=== PATIENT | male | born 1950 | race Caucasian/White ===

== ENCOUNTER 2019-07-09 14:18 | Observation (INO) | payer MEDICARE, OTHER ==
[2019-07-09 15:24] LABS: ABS Basophils 0.1 10^3/ul (0-0.2); ABS Eosinophils 0.2 10^3/ul (0-0.6); ABS Lymphocytes 1.4 10^3/ul (1.0-4.8); ABS Monocytes 0.5 10^3/ul (0-0.8); ABS Neutrophils 4.1 10^3/ul (1.5-7.7); Eosinophil % 2.8 %; Hematocrit 46 % (42-52); Hemoglobin 15.6 g/dL (14.0-18.0); Lymphocyte % 23.2 %; Mean Corpuscular HGB Conc 34 g/dL (31-36); Mean Corpuscular Hemoglobin 30 pg (27-31); Mean Corpuscular Volume 88 fL (80-94); Mean Platelet Volume 7.6 fL (7.4-10.4); Nucleated Red Blood Cells % 0.1; Platelet Count 274 10^3/uL (150-450); Red Blood Count 5.19 10^6 /uL (4.18-5.48); Red Cell Distribution Width 14 % (10-15); White Blood Count 6.2 10^3/uL (3.5-10.8)
[2019-07-09 15:31] LABS: INR 1.01 (0.82-1.09)
[2019-07-09 15:35] LABS: ALT 19 U/L (7-52); AST 19 U/L (13-39); Albumin 4.5 g/dL (3.2-5.2); Albumin/Globulin Ratio 1.7 (1-3); Alkaline Phosphatase 58 U/L (34-104); Anion Gap 7 mmol/L (2-11); BUN/Creatinine Ratio 15.3 (8-20); Blood Urea Nitrogen 17 mg/dL (6-24); CO2 Carbon Dioxide 28 mmol/L (22-32); Calcium 9.2 mg/dL (8.6-10.3); Chloride 101 mmol/L (101-111); EGFR African American 79.5 (>60); EGFR Non-African American 65.7 (>60); Globulin 2.6 g/dL (2-4); Glucose 118 mg/dL (70-100); Sodium 136 mmol/L (135-145); Total Protein 7.1 g/dL (6.4-8.9)
[2019-07-09 15:41] LABS: Troponin I 0.04 ng/mL (<0.03)
--- NOTE | 2019-07-09 16:41 | ED ---
HPI Chest Pain - HPI Summary HPI Summary: This pt is a 69 Y/O M presenting to [facility] with a CC of CP that has been present since 07/07/19 that was located mid sternal. He states that the onset happened while he was dancing and was rated a 2/10 in severity. He states that the pain went away after he took a rest. He states that he had a similar episode on 2019 while watching a football game at a bar. He states that he had a third episode today while he was walking on some trails. The final episode was resolved after her took a rest after returning home. He states that while walking into the hospital he experienced the same chest discomfort, which has resolved since he has been lying in his bed. He states that the pain is described as discomfort. He states that he has been under stress due to a move recently. He denies any fevers, chills, N/V/D, SOB, and headaches. He states that he has a PMHx of hypercholesterolemia. - History of Current Complaint Chief Complaint: EDChestPainROMI Time Seen by Provider: 07/09/19 16:28 Hx Obtained From: Patient Onset/Duration: Started Days Ago - 2, Still Present Timing: Intermittent Initial Severity: Mild Current Severity: Mild Pain Intensity: 2 Pain Scale Used: 0-10 Numeric Chest Pain Location: Mid Sternal Chest Pain Radiates: No Character: Other: - discomfort Aggravating Factor(s): Exertion Alleviating Factor(s): Rest Associated Signs and Symptoms: Positive: Negative - diarrhea, Chest Pain. Negative: Headaches, Shortness of Breath, Fever, Chills, Nausea, Vomiting - Additional Pertinent History Primary Care Physician: CEZAR - Allergy/Home Medications Allergies/Adverse Reactions: Allergies Allergy/AdvReac Type Severity Reaction Status Date / Time No Known Allergies Allergy Verified 02/16/16 10:27 Home Medications: Home Medications Bacillus Coagulans/Inulin [Probiotic Formula 1-250 Billion-mg] 1 cap PO DAILY [History Confirmed 07/09/19] PMH/Surg Hx/FS Hx/Imm Hx Previously Healthy: Yes Endocrine/Hematology History: Reports: Other Endocrine/Hematological Disorders - GOUT, LYME DISEASE HX Cardiovascular History: Reports: Hx Hypercholesterolemia Denies: Hx Pacemaker/ICD Respiratory History: Reports: Hx Asthma GI History: Reports: Hx Gastrointestinal Bleed, Other GI Disorders - DIVERTICULITIS Musculoskeletal History: Reports: Hx Arthritis Sensory History: Reports: Hx Hearing Aid - BOTH EARS-NOT WITH PT Psychiatric History: Denies: Hx Panic Disorder - Cancer History Hx Chemotherapy: No Hx Radiation Therapy: No - Surgical History Surgical History: Yes - Immunization History Immunizations Up to Date: Yes Infectious Disease History: No Infectious Disease History: Denies: Traveled Outside the [place] in Last 30 Days - Family History Known Family History: Positive: None - Social History Occupation: Retired Lives: Alone Alcohol Use: None Hx Substance Use: No Substance Use Type: Reports: None Hx Tobacco Use: Yes Smoking Status (MU): Former Smoker Type: Cigarettes Have You Smoked in the Last Year: No Review of Systems Negative: Fever, Chills Positive: Chest Pain Negative: Shortness Of Breath Negative: Vomiting, Diarrhea, Nausea Negative: Headache All Other Systems Reviewed And Are Negative: Yes Physical Exam - Summary Physical Exam Summary: Appearance: The patient is well-nourished in no acute distress and in no acute pain. Skin: The skin is warm and dry and skin color reflects adequate perfusion. HEENT: The head is normocephalic and atraumatic. The pupils are equal and reactive. The conjunctivae are clear and without drainage. Nares are patent and without drainage. Mouth reveals moist mucous membranes and the throat is without erythema and exudate. The external ears are intact. The ear canals are patent and without drainage. The tympanic membranes are intact. Neck: The neck is supple with full range of motion and non-tender. There are no carotid bruits. There is no neck vein distension. Respiratory: Chest is non-tender. Lungs are clear to auscultation and breath sounds are symmetrical and equal. Cardiovascular: Heart is regular rate and rhythm. There is no murmur or rub auscultated. There is no peripheral edema and pulses are symmetrical and equal. Abdomen: The abdomen is soft and non-tender. There are normal bowel sounds heard in all four quadrants and there is no organomegaly palpated. Musculoskeletal: There is no back tenderness noted. Extremities are non-tender with full range of motion. There is good capillary refill. There is no peripheral edema or calf tenderness elicited. Neurological: Patient is alert and oriented to person, place and time. The patient has symmetrical motor strength in all four extremities. Cranial nerves are grossly intact. Deep tendon reflexes are symmetrical and equal in all four extremities. Psychiatric: The patient has an appropriate affect and does not exhibit any anxiety or depression. Triage Information Reviewed: Yes Vital Signs On Initial Exam: Initial Vitals Temp Pulse Resp BP Pulse Ox 98.2 F 90 18 170/84 99 07/09/19 14:23 07/09/19 14:23 07/09/19 14:23 07/09/19 14:23 07/09/19 14:23 Vital Signs Reviewed: Yes Procedures - Sedation Patient Received Moderate/Deep Sedation with Procedure: No Diagnostics - Vital Signs Vital Signs Temp Pulse Resp BP Pulse Ox 07/09/19 14:23 98.2 F 90 18 170/84 99 - Laboratory Lab Results: Lab Results 07/08/19 07/08/19 07/09/19 Range/Units 14:54 14:54 14:54 WBC 6.2 (3.5-10.8) 10^3/uL RBC 5.19 (4.18-5.48) 10^6 /uL Hgb 15.6 (14.0-18.0) g/dL Hct 46 (42-52) % MCV 88 (80-94) fL MCH 30 (27-31) pg MCHC 34 (31-36) g/dL RDW 14 (10-15) % Plt Count 274 (150-450) 10^3/uL MPV 7.6 (7.4-10.4) fL Neut % (Auto) 65.4 % Lymph % (Auto) 23.2 % [place] % (Auto) 7.5 % Eos % (Auto) 2.8 % Baso % (Auto) 1.1 % Absolute Neuts (auto) 4.1 (1.5-7.7) 10^3/ul Absolute Lymphs (auto) 1.4 (1.0-4.8) 10^3/ul Absolute Monos (auto) 0.5 (0-0.8) 10^3/ul Absolute Eos (auto) 0.2 (0-0.6) 10^3/ul Absolute Basos (auto) 0.1 (0-0.2) 10^3/ul Absolute Nucleated RBC 0.0 10^3/ul Nucleated RBC % 0.1 INR (Anticoag Therapy) 1.01 (0.82-1.09) Sodium 136 (135-145) mmol/L Potassium 4.0 (3.5-5.0) mmol/L Chloride 101 (101-111) mmol/L Carbon Dioxide 28 (22-32) mmol/L Anion Gap 7 (2-11) mmol/L BUN 17 (6-24) mg/dL Creatinine 1.11 (0.67-1.17) mg/dL Est GFR ( Amer) 79.5 (>60) Est GFR (Non-Af Amer) 65.7 (>60) BUN/Creatinine Ratio 15.3 (8-20) Glucose 118 H (70-100) mg/dL Calcium 9.2 (8.6-10.3) mg/dL Total Bilirubin 0.40 (0.2-1.0) mg/dL AST 19 (13-39) U/L ALT 19 (7-52) U/L Alkaline Phosphatase 58 (34-104) U/L Troponin I 0.04 H* (<0.03) ng/mL Total Protein 7.1 (6.4-8.9) g/dL Albumin 4.5 (3.2-5.2) g/dL Globulin 2.6 (2-4) g/dL Albumin/Globulin Ratio 1.7 (1-3) Result Diagrams: 07/08/19 14:54 07/08/19 14:54 Lab Statement: Any lab studies that have been ordered have been reviewed, and results considered in the medical decision making process. - EKG 1421 Cardiac Rate: NL - 70 BPM EKG Rhythm: Sinus Rhythm Summary of EKG Findings: Normal sinus rhythm at 90 BPM with left atrial enlargement and borderline ST depressions, no STEMI. Interpreted by Dr. Hughes, 1422 07/09/2019. Chest Pain Course/Dx - Course Course Of Treatment: Mr. Alfonso presented with a good story for unstable angina. He was nontoxic in appearance with stable vitals. His initial EKG showed some nondiagnostic diffuse ST depressions. Initial troponin was 0.04. I spoke with Dr. Mak recommended admission to the hospital service and I spoke with Dr. Gray who came and evaluated the patient. The patient was pain- free here and I gave him an aspirin which he does not take routinely. - Diagnoses Provider Diagnoses: Unstable angina - Provider Notifications Discussed Care Of Patient With: Rashida Gray Time Discussed With Above Provider: 17:32 Instructed by Provider To: Admit As Inpatient Admit/Transition Orders Completed By ED Provider: Yes Discharge ED - Sign-Out/Discharge Documenting (check all that apply): Patient Departure - admitted - Discharge Plan Condition: Stable Disposition: ADMITTED TO [facility] - Billing Disposition and Condition Condition: STABLE Disposition: Admitted to [facility] - Attestation Statements Document Initiated by Cornelioibe: Yes Documenting Scribe: Arthur Elena Provider For Whom Jakob is Documenting (Include Credential): Jimy Hughes MD Scribe Attestation: Arthur Villanueva, scribed for Jimy Hughes MD on 07/09/19 at 2128. Scribe Documentation Reviewed: Yes Provider Attestation: The documentation as recorded by the Arthur barros accurately reflects the service I personally performed and the decisions made by Jimy diana MD Status of Scribe Document: Viewed
[2019-07-09] MEDS ORDERED: Aspirin TAB* 325 MG PO ONE (17:00)
[2019-07-09 18:06] LABS: Troponin I 0.13 ng/mL (<0.03)
[2019-07-09] MEDS ORDERED: Acetaminophen TAB* 325 MG PO PRN (18:06)
[2019-07-09 18:28] LABS: Cholesterol 182 mg/dL; HDL Cholesterol 41.2 mg/dL; LDL Cholesterol 86 mg/dL; Triglycerides 274 mg/dL
[2019-07-09] MEDS ORDERED: Enoxaparin(*) 80 MG/0.8 ML SYR SUBCUT SCH (19:30)
--- NOTE | 2019-07-09 20:09 | HP ---
CC: Dr. Deo Godniez * HISTORY AND PHYSICAL: DATE OF ADMISSION: 07/09/19 PRIMARY CARE PROVIDER: Dr. Deo Godinez. HEALTHCARE PROXY: The patient's brother, Juan C, phone number [phone]. CODE STATUS: Full. CHIEF COMPLAINT: Subacute progressive intermittent chest pain. HISTORY OF PRESENT ILLNESS: Mr. Finley is a 69-year-old man without significant prior medical diagnoses, who is presenting with worsening intermittent substernal chest pain. The patient reports that he has had a substernal pressure-like chest pain on significant exertion "rarely" over the last 2 years; however, over the last 2 days, it has acutely worsened. He reports 2 nights ago dancing on [employer] when the chest pain came on suddenly. It lasted several minutes, so the patient rested as this had helped with his chest pain in the past. He then went home as he was afraid the chest pain would come back if he continues to exert himself. The next day, which was yesterday, the patient was sitting at a sports bar watching a game when the chest pain came on all of a sudden and was again substernal, nonradiating, although this time it felt more stabbing in quality and after several minutes, it went away. Today, on the day of presentation, the patient walked approximately one-tenth of a mile when the chest pain came on suddenly, was severe, associated with hand tingling and the patient decided to come to the emergency room as normally he has unlimited exercise tolerance. He denies associated diaphoresis, fevers, chills, shortness of breath, abdominal pain, nausea, vomiting, constipation, or dysuria. PAST MEDICAL HISTORY: 1. Right-sided inguinal hernia, pending repair. 2. A 4-pack-year smoking history. HOME MEDICATIONS: Probiotic. ALLERGIES: No known drug allergies. FAMILY HISTORY: He reports multiple family members with high cholesterol. SOCIAL HISTORY: The patient lives alone at home with 2 cats. 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 He quit smoking at the age of 50, smoked for approximately 25 years, 1 pack per week. He has an occasional glass of wine or lilia. He does not use other drugs. REVIEW OF SYSTEMS: A complete 10-point review of systems was performed and pertinent positives and negatives are listed in the HPI. PHYSICAL EXAMINATION GENERAL: He is a well-appearing man, in no acute distress, who is alert and interactive, speaking in full sentences, very pleasant. VITAL SIGNS: Afebrile, heart rate 76, blood pressure 164/99, respiratory rate 16, oxygen saturation 96% on room air. NECK: No JVD. LUNGS: Clear to auscultation bilaterally. HEART: Regular rate and rhythm. No murmurs, gallops, or rubs. ABDOMEN: Soft, nontender, nondistended. NEURO: No focal deficits. A and O x3. SKIN: Warm and dry. DIAGNOSTIC STUDIES/LAB DATA: CBC, BMP, LFTs within normal limits. Troponin 0.04. Chest x-ray not performed. EKG: Normal sinus rhythm, rate 90, submillimeter ST depressions in II, III, and aVF. ASSESSMENT AND PLAN: Mr. Finley is a 69-year-old previously healthy man who is presenting with subacute progressive intermittent chest pain associated with exertion, found to have positive troponin and slight ST depressions on EKG. 1. Chest pain. The progressive nature of the patient's symptoms in the context of positive troponin and EKG changes although mild are concerning for acute coronary syndrome. The patient denies history of hypertension, although he was hypertensive on presentation. He has a history of not tolerating a statin, multiple family members with hyperlipidemia, and he also has a smoking history. Given these risk factors, Cardiology was consulted and recommended a nuclear stress test for tomorrow morning. In the meantime, the patient will be initiated on aspirin, beta claudia, and therapeutic anticoagulation with Lovenox. Statin is held as the patient reports significant muscular pain in the past with statins. He will remain on telemetry and he has also been ordered for an echocardiogram. Lipids and A1c are pending. 2. DVT prophylaxis: The patient is on therapeutic anticoagulation. 3. Code status: Full code. TIME SPENT: Approximately 60 minutes was spent on admission of this patient, more than half of which was spent at the bedside for interview and exam. [id number]/CPS #: [id number] FADIA
[2019-07-09] MEDS: Metoprolol Tartrate TAB* 25 MG PO SCH (20:16)
[2019-07-09 22:02] LABS: Troponin I 0.15 ng/mL (<0.03)
[2019-07-09] MEDS ORDERED: Heparin DRIP 25,000 UNITS(*) 25,000 UNITS/500 ML BAG IV SCH (23:00)
[2019-07-09] MEDS ORDERED: Heparin VIAL(*) 5000 UNITS/ML VIAL (FIVE THOUSAND) IV SCH (23:00)
--- NOTE | 2019-07-09 23:09 | PN ---
Resident Interval ProgressNote Date of Service: 07/09/19 Called to see patient for uptrending Trop 69 y/o male came in for progressively worsening angina. Patient was sleeping, no chest pain, palpitation since admission. last one happens when dancing the other day. Repeat EKG: worsening ST depression inferior lead, submilimeter ST elevation V2- V3. CT interval 227 A+ P NSTEMI - with uptrending trop and worsening st depression inferior lead and new pr prolongation (227), likely NSTEMI - has been given aspirin loading, will give plavix loading - start iv heparin drip - will hold off statin as patient had intolerance of statin in the past - will continue to trend trop and repeat ekg same time. - need cardio opinion regarding cath in view of nstemi Above plan discussed with patient, no bleeding diathesis, agrees with current plan.
[2019-07-09] MEDS ORDERED: Clopidogrel TAB* 300 MG PO ONE (23:20)
[2019-07-10 00:06] LABS: ABS Basophils 0.1 10^3/ul (0-0.2); ABS Eosinophils 0.2 10^3/ul (0-0.6); ABS Lymphocytes 2.1 10^3/ul (1.0-4.8); ABS Monocytes 0.7 10^3/ul (0-0.8); ABS Neutrophils 3.1 10^3/ul (1.5-7.7); Eosinophil % 3.9 %; Hematocrit 43 % (42-52); Hemoglobin 15.1 g/dL (14.0-18.0); Lymphocyte % 33.5 %; Mean Corpuscular HGB Conc 35 g/dL (31-36); Mean Corpuscular Hemoglobin 31 pg (27-31); Mean Corpuscular Volume 89 fL (80-94); Mean Platelet Volume 7.1 fL (7.4-10.4); Platelet Count 242 10^3/uL (150-450); Red Blood Count 4.89 10^6 /uL (4.18-5.48); Red Cell Distribution Width 14 % (10-15); White Blood Count 6.2 10^3/uL (3.5-10.8)
[2019-07-10 00:23] LABS: EGFR African American 97.5 (>60); EGFR Non-African American 80.6 (>60)
[2019-07-10 02:59] LABS: Troponin I 0.14 ng/mL (<0.03)
[2019-07-10 05:37] LABS: ABS Basophils 0.1 10^3/ul (0-0.2); ABS Eosinophils 0.3 10^3/ul (0-0.6); ABS Lymphocytes 1.9 10^3/ul (1.0-4.8); ABS Monocytes 0.5 10^3/ul (0-0.8); ABS Neutrophils 2.2 10^3/ul (1.5-7.7); Eosinophil % 5.5 %; Hematocrit 44 % (42-52); Hemoglobin 15.2 g/dL (14.0-18.0); Lymphocyte % 38.6 %; Mean Corpuscular HGB Conc 35 g/dL (31-36); Mean Corpuscular Hemoglobin 31 pg (27-31); Mean Corpuscular Volume 88 fL (80-94); Mean Platelet Volume 7.3 fL (7.4-10.4); Platelet Count 235 10^3/uL (150-450); Red Blood Count 4.96 10^6 /uL (4.18-5.48); Red Cell Distribution Width 14 % (10-15)
[2019-07-10] MEDS ORDERED: Ticagrelor* 90 MG TAB PO ONE (08:20)
--- NOTE | 2019-07-10 08:28 | PN ---
Subjective Date of Service: 07/10/19 Interval History: Troponin increased overnight, but patient without chest pain. Cardiology aware and considering patient for cath. Objective Active Medications: Acetaminophen (Tylenol Tab*) 975 mg PO Q8H PRN PRN Reason: Pain - Mild to Moderate Aspirin (Aspirin 81 Mg Chew Tab*) 81 mg PO DAILY ON LICENSE OF [facility] Heparin Sodium (Porcine) (Heparin Vial(*)) 0 units IV .PER PROTOCOL ON LICENSE OF [facility] Heparin Sodium/Dextrose (Heparin Drip 25,000 Units(*)) 25,000 units in 500 mls @ 0 mls/hr IV PER RATE ON LICENSE OF [facility]; Protocol Last Admin: 07/10/19 00:11 Dose: 20 mls/hr Metoprolol Tartrate (Lopressor Tab*) 12.5 mg PO Q12HR JOANNE Last Admin: 07/09/19 20:16 Dose: 12.5 mg Ticagrelor (Brilinta*) 180 mg PO ONCE ONE Stop: 07/10/19 08:21 Vital Signs - 8 hr 07/10/19 03:14 Temperature 97.8 F Pulse Rate 70 Respiratory 18 Rate Blood Pressure 141/74 (mmHg) O2 Sat by Pulse 98 Oximetry Oxygen Devices in Use Now: None Appearance: well appearing man in NAD, speaking in full sentences, very pleasant Ears/Nose/Mouth/Throat: Clear Oropharnyx, Mucous Membranes Moist Neck: - - carotid bruits b/l Respiratory: Symmetrical Chest Expansion and Respiratory Effort, Clear to Auscultation Cardiovascular: NL Sounds; No Murmurs; No JVD, RRR Abdominal: NL Sounds; No Tenderness; No Distention, No Hepatosplenomegaly Extremities: No Edema Skin: No Rash or Ulcers Neurological: Alert and Oriented x 3 Result Diagrams: 07/10/19 05:23 07/10/19 00:01 Additional Lab and Data: Lab Results 07/08/19 07/08/19 07/09/19 Range/Units 14:54 14:54 14:54 WBC 6.2 (3.5-10.8) 10^3/uL RBC 5.19 (4.18-5.48) 10^6 /uL Hgb 15.6 (14.0-18.0) g/dL Hct 46 (42-52) % MCV 88 (80-94) fL MCH 30 (27-31) pg MCHC 34 (31-36) g/dL RDW 14 (10-15) % Plt Count 274 (150-450) 10^3/uL MPV 7.6 (7.4-10.4) fL Neut % (Auto) 65.4 % Lymph % (Auto) 23.2 % [place] % (Auto) 7.5 % Eos % (Auto) 2.8 % Baso % (Auto) 1.1 % Absolute Neuts (auto) 4.1 (1.5-7.7) 10^3/ul Absolute Lymphs (auto) 1.4 (1.0-4.8) 10^3/ul Absolute Monos (auto) 0.5 (0-0.8) 10^3/ul Absolute Eos (auto) 0.2 (0-0.6) 10^3/ul Absolute Basos (auto) 0.1 (0-0.2) 10^3/ul Absolute Nucleated RBC 0.0 10^3/ul Nucleated RBC % 0.1 INR (Anticoag Therapy) 1.01 (0.82-1.09) Sodium 136 (135-145) mmol/L Potassium 4.0 (3.5-5.0) mmol/L Chloride 101 (101-111) mmol/L Carbon Dioxide 28 (22-32) mmol/L Anion Gap 7 (2-11) mmol/L BUN 17 (6-24) mg/dL Creatinine 1.11 (0.67-1.17) mg/dL Est GFR ( Amer) 79.5 (>60) Est GFR (Non-Af Amer) 65.7 (>60) BUN/Creatinine Ratio 15.3 (8-20) Glucose 118 H (70-100) mg/dL Calcium 9.2 (8.6-10.3) mg/dL Total Bilirubin 0.40 (0.2-1.0) mg/dL AST 19 (13-39) U/L ALT 19 (7-52) U/L Alkaline Phosphatase 58 (34-104) U/L Troponin I 0.04 H* (<0.03) ng/mL Total Protein 7.1 (6.4-8.9) g/dL Albumin 4.5 (3.2-5.2) g/dL Globulin 2.6 (2-4) g/dL Albumin/Globulin Ratio 1.7 (1-3) Assess/Plan/Problems-Billing Assessment: Mr. Finley is a 69-year-old previously healthy man who is presenting with subacute progressive intermittent chest pain with exertion, and now at rest, found to have positive troponin and slight ST depressions on EKG, concerning for NSTEMI. - Patient Problems (1) NSTEMI (non-ST elevated myocardial infarction) Comment: By symptoms, elevated trop, and EKG changes. - pending cardiac cath today - on aspirin, statin, heparin - appreciate cardiology consult (2) HTN (hypertension) Comment: - started beta-claudia for cardiac disease - monitor BP as he will likely need a first-line agent
[2019-07-10 08:54] LABS: Creatine Kinase 50 U/L (10-223)
[2019-07-10 08:59] LABS: CKMB ng/mL 2.2 ng/mL (0.6-6.3)
[2019-07-10 08:59] LABS: CKMB ng/mL 2.8 ng/mL (0.6-6.3)
[2019-07-10 08:59] LABS: CKMB ng/mL 2.8 ng/mL (0.6-6.3)
[2019-07-10] MEDS ORDERED: Clopidogrel TAB* 75 MG PO SCH (09:00)
[2019-07-10] MEDS ORDERED: Pantoprazole TAB * 40 MG TAB PO SCH (09:00)
[2019-07-10] MEDS ORDERED: Aspirin 81 mg CHEW TAB* 81 MG TAB.CHEW PO SCH (09:00)
[2019-07-10 09:02] LABS: CKMB ng/mL 1.8 ng/mL (0.6-6.3)
--- NOTE | 2019-07-10 09:02 | ECHO ---
*[facility]* [place] [address] Fax #: [phone] Transthoracic Echocardiogram Patient: Jimy Finley : 1950 Study Date: 07/10/2019 Age: 69 Gender: M HR: 60 bpm Height: 70 in /177.8 cm BSA: 1.96 m^2 Weight: 169.6 lb /77.1 kg BMI: 24.4 kg/m^2 *Hog Killer: * Maru Escobar [facility] *Referring Physician: * Rashida Gray *Reading Physician: * Sergio Phoenix MD Indications: Chest Pain, unspecified. History: Risk factors: Former tobacco use. Hyperlipidemia. Conclusions Summary: - Left ventricle: The cavity size is normal. Wall thickness is mildly increased. Systolic function is normal. The estimated ejection fraction is 55-60%. Wall motion is normal; there are no regional wall motion abnormalities. Doppler parameters are consistent with abnormal left ventricular relaxation (grade 1 diastolic dysfunction). - Normal cardiac chamber sizes. - Functionally benign heart valves. - There is no prior echocardiogram available to compare with at this time. Study data: Transthoracic echocardiogram. Procedure: Transthoracic echocardiography was performed. Image quality was fair. Complete 2D, spectral Doppler, and color flow Doppler. Location: Bedside. Patient status: Inpatient. Patient room number: 446-01. Rhythm: Normal sinus rhythm. Findings Left ventricle: The cavity size is normal. Wall thickness is mildly increased. Systolic function is normal. The estimated ejection fraction is 55-60%. Wall motion is normal; there are no regional wall motion abnormalities. Doppler parameters are consistent with abnormal left ventricular relaxation (grade 1 diastolic dysfunction). Right ventricle: The cavity size is at the upper limits of normal. Wall thickness is at the upper limits of normal. Systolic function is normal. Left atrium: The atrium is at the upper limits of normal in size. Right atrium: The atrium is normal in size. Mitral valve: The leaflets are mildly thickened. There is trace regurgitation. Aortic valve: The valve is trileaflet. The leaflets are mildly thickened. Thickening, consistent with sclerosis. There is no evidence of stenosis. There is no significant regurgitation. Tricuspid valve: The leaflets are normal thickness. There is no regurgitation. Pulmonic valve: The leaflets are normal thickness. There is no evidence of stenosis. Pulmonary valve velocity 0.84 m/sec. There is no regurgitation. Aorta: Aortic root: The aortic root is appears normal. Ascending aorta: The ascending aorta is appears normal. Aortic arch: The aortic arch is appears normal. Pericardium: There is no significant pericardial effusion. Pulmonary arteries: The main pulmonary artery is normal-sized. Systolic pressure can not be accurately estimated. Systemic veins: Inferior vena cava: The vessel is normal in size. There is (>= 50%) respiratory change in the IVC dimension. Measurements Left ventricle Value Ref Right atrium Value Ref FRANK, LAX 4.3 cm 4.2 - SI dim, ES 4.2 cm 3.4 - 5.3 5.8 ML dim, ES, A4C 4.0 cm 2.6 - 4.4 ESD, LAX 3.1 cm 2.5 - Estimated RAP 3 mm Hg --------- 4.0 FS, LAX 28 % Aortic valve Value Ref PW, ED, LAX (H) 1.1 cm 0.6 - Qamar diam, S (L) 1.9 cm 2.0 - 3.2 1.0 Peak v, S 1.28 m/sec --------- FS 28 % VTI, S 23.4 cm --------- PW, ED (H) 1.1 cm 0.6 - Mean grad, S 4.3 mm Hg --------- 1.0 Peak grad, S 6.6 mm Hg --------- E', lat qamar, TDI (L) 5.0 cm/sec >=10.0 LVOT/AV, VTI ratio 0.68 --- ------ E/e', lat qamar, TDI 9 -------- LOS, VTI 1.74 cm^2 ------ --- E', med qamar, TDI (L) 5.0 cm/sec >=7.0 LOS, Vmax 2.13 cm^2 --- ------ E/e', med qamar, TDI 9 -------- E', avg, TDI 5.0 cm/sec -------- Mitral valve Value Ref E/e', avg, TDI 9 <=14 Peak E 0.44 m/sec --- ------ Peak A 0.66 m/sec --------- LVOT Value Ref Decel time 201 ms --------- Diam, S 1.97 cm -------- Peak E/A ratio 0.66 --------- Area 3.1 cm^2 -------- Peak gauri, S 0.87 m/sec -------- Aortic root Value Ref VTI, S 15.9 cm -------- Root diam 3.1 cm <4.1 Peak grad, S 3 mm Hg -------- Mean grad, S 2 mm Hg -------- Ascending aorta Value Ref AAo AP diam, S 3.4 cm --------- Ventricular septum Value Ref IVS, ED (H) 1.2 cm 0.6 - Aortic arch Value Ref 1.0 Arch diam 2.3 cm --------- Right ventricle Value Ref Decending aorta Value Ref AW thickness, ED 0.5 cm 0.1 - Kamlesh peak gauri 0.52 m/sec --------- 0.5 FRANK, LAX 2.7 cm -------- Inferior vena cava Value Ref FRANK minor ax, A4C 3.5 cm 1.9 - Diam 1.6 cm --------- mid 3.5 Left atrium Value Ref LA ID 3.3 cm -------- SI dim ES, LAX 3.3 cm -------- ML dim, A4C 3.5 cm -------- SI dim, A4C 5.3 cm -------- Vol, ES, 2-p 67 ml -------- Vol/bsa, ES, 2-p 34 ml/m^2 16 - 34 Legend: (L) and (H) elijah values outside specified reference range. Prepared and electronically signed by Sergio Phoenix MD 07/10/2019 09:01
[2019-07-10] MEDS ORDERED: diPHENhydraMINE PO* 50 MG PO PRN (09:06)
[2019-07-10] MEDS ORDERED: Diazepam TAB(*) 5 MG PO PRN (09:06)
[2019-07-10] MEDS ORDERED: NS 0.9% 1000 ML** 1,000 ML IV SCH ×2 (09:15→12:30)
[2019-07-10 09:19] LABS: Creatine Kinase 49 U/L (10-223)
[2019-07-10 09:24] LABS: CKMB ng/mL 2.1 ng/mL (0.6-6.3)
[2019-07-10 09:25] LABS: Troponin I 0.11 ng/mL (<0.03)
[2019-07-10] MEDS: Metoprolol Tartrate TAB* 25 MG PO SCH (09:28)
[2019-07-10] MEDS ORDERED: Lidocaine 1% INJ* 10 MG/ML 30 ML SDV ONE (10:55)
[2019-07-10] MEDS ORDERED: Heparin 2 UNITS/ML IVPREMIX* 2,000 ML IV ONE (10:55)
[2019-07-10] MEDS ORDERED: Iohexol 350 (CONTRAST) 200 ML MDV IV ONE (10:55)
[2019-07-10] MEDS ORDERED: Heparin(*) 1000 UNIT/ML 10 ML VIAL CATH LAB IV ONE (11:04)
[2019-07-10] MEDS ORDERED: nitroGLYCERIN DRIP* 25,000 MCG/250 ML BTL ONE (11:04)
[2019-07-10] MEDS ORDERED: VERAPAMIL 2.5 MG/ML 2 ML VIAL ** 5 mg/2 ml ONE (11:04)
[2019-07-10] MEDS ORDERED: Midazolam* 1 MG/ML 5 ML VIAL (5 MG) ONE (11:04)
[2019-07-10] MEDS ORDERED: fentaNYL* 50 MCG/ML 2 ML VIAL (100 MCG VIAL) ONE (11:04)
--- NOTE | 2019-07-10 11:44 | CONS ---
CONSULTATION REPORT: DATE OF CONSULT: 07/10/19 ATTENDING PROVIDER: Dr. Edgar Reyes (Dictated by Catie Orr, [place]). PRIMARY PHYSICIAN: Dr. Godinez, PRIMARY PAPERBACK MACHINE OPERATOR: None. REASON FOR CONSULT: Cardiac enzyme elevation with EKG changes. CHIEF COMPLAINT: Escalating chest pain since 07/07/19. HISTORY OF PRESENT ILLNESS: This is a pleasant 69-year-old male patient with a previous documented medical history of hypertension, diverticular GI bleed in 2016, gallstone pancreatitis, remote tobacco abuse, gastric reflux, gluten sensitivity, and relapsing Lyme disease. The patient presented to [facility] on 07/09/19 due to progressive chest pain. Upon further enquiry, it appears that patient has had exertional substernal chest pain dating back to at least 2012, that would historically occur once a month, typically in the setting of dancing, which he does as a hobby. He states symptoms have been stable since that time and would almost always resolve with rest. He adds that on remington while dancing, he experienced an episode of chest pain that persisted for 15 minutes. No relieving factors, not related to inspiration, palpation or movement of torso occurred while dancing and again resolved after rest. He states that on day (07/08/19) while sitting at a bar, he developed a recurrent episode that was concerning to him because, again, he was not active while episode occurred, which is historically the provoking factor. Episode again resolved on its own, no relieving factors. He states yesterday, 07/09/19, while walking down a hill near [facility], he developed another episode of substernal chest pain radiating down bilateral upper extremities with associated paresthesia per patient. He states that episode was ongoing and persistent, thus he drove himself to [facility]. Pain had resolved en route to [facility], however, apparently from walking to his car into the emergency department, he developed another episode of chest pain that resolved with rest. The patient was seen in the emergency department, given a Plavix load, started on IV heparin, basic blood work obtained, revealed troponinemia with new inferolateral ST-segment depression compared to prior ECG in 2016. He was admitted to [address] [place] [address] for ACS and we have been asked to see patient in consultation. He is currently chest pain free, again, last episode was while walking into the emergency department, 07/09/19. He denies dizziness, syncope, palpitation, shortness of breath, dyspnea on exertion. Does report associated bilateral upper extremity paresthesia with episodes. In the past, he states that he has been told he had hyperlipidemia, but because of muscle aches and pains, he was hesitant to start statin therapy; however, he is agreeable to initiating statin therapy at this time. He adds that although he does not take medications at home, he would be compliant if medications were recommended and prescribed for his heart health. He is in the process of moving to [place] and recently accepted an offer on his home in [place], he was planning on traveling back to [place] in the next 10 to 14 days. He does not have any followup in [place] at this time in regards to physicians. Last ischemic evaluation, none. PAST MEDICAL HISTORY: 1. Hyperlipidemia. 2. Gallstone pancreatitis in 2016. 3. Hypertension. 4. GERD. 5. Osteoarthritis. 6. Relapsing Lyme disease with joint involvement. 7. Gluten sensitivity. 8. Right inguinal hernia. 9. Prior diverticular bleed in 2016, 10. 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 PAST SURGICAL HISTORY: Includes, 1. Laparoscopic cholecystectomy. 2. Repair of umbilical and supraumbilical hernia. 3. Colonoscopy. MEDICATIONS: Home medications, none. ALLERGIES: No known drug allergies. Denies allergy to shellfish, contrast dye or aspirin. FAMILY HISTORY: Mother at the age of 80 due to myocardial infarction. Father passed at age 85 due to complications that were related to age-related changes. Sibling history is negative for cardiovascular disease. SOCIAL HISTORY: The patient is listed as a full code. Former tobacco user. Smoked for 20 to 30 years, quit at the age of 50. Reports consuming 1 glass of wine a day. He currently resides at home alone in [place], which is his primary residence. He lives with 2 cats. 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 REVIEW OF SYSTEMS: All systems have been reviewed and otherwise negative except as above mentioned in HPI. PHYSICAL EXAM: Vital Signs: Temperature is 98, pulse 80, respirations 20, oxygenation 97% on room air, blood pressure 112/72. General: The patient was sitting on edge of bed upon my entering the room. He appears to be in no apparent distress. He is cooperative with examination and appears well nourished. HEENT: Head is atraumatic, normocephalic. Oral mucosa moist. Tongue is midline. Neck: Supple. Trachea midline. Positive bilateral soft carotid bruits noted. No thyromegaly. No JVD. Cardiac: Normal S1, S2. Regular rate and rhythm. No murmurs, rubs or gallops noted. Lungs: Auscultated posteriorly, no evidence of adventitious breath sounds. Respirations are nonlabored. /GI: Abdomen is soft, nontender, nondistended. Normoactive bowel sounds. Positive right inguinal hernia with band noted in right groin region. Peripheral Vascular: 3+ brachial pulses palpated bilaterally and symmetrically. 4+ femoral pulses palpated bilaterally and symmetrically with no thrill. Extremities: No pedal edema. No clubbing, no cyanosis. Skin: Intact. No evidence of jaundice, rashes or ecchymosis appreciated. DIAGNOSTIC STUDIES/LAB DATA: Blood work reviewed, white count is 5, hemoglobin 15.2, hematocrit 44, platelets are 235, INR is 1.01. Sodium 136, potassium 4, BUN 17, creatinine 1.1. Troponin peaked at 0.15 on 07/09/19. LDL 86. ECG from 07/09/19 reviewed, normal sinus rhythm, rate 75, with improvement of inferolateral ST segment depression noted, compared to prior ECG at 2210. Chest x-ray; per Radiology report, no acute cardiopulmonary process. ASSESSMENT AND PLAN: 1. Troponin elevation with symptomatology consistent with unstable angina; There as new inferolateral ST depression that did improve but persists. CK and CKMB are normal. Plan is to proceed with left heart catheterization. Procedure was reviewed with patient including risks, benefits, and indication. He is aware of the risks to include, but are not limited to bleeding, infection , vessel damage, risk of contrast induced nephropathy, possibility of stent deployment requiring dual antiplatelet therapy which would require him to be compliant with medications, referral for bypass surgery. The patient would like to proceed with cardiac catheterization. Consent to be obtained by contract administration manager, Dr. Edgar Reyes. At this current time, we recommend continuing IV heparin. Last episode of chest pain was yesterday upon entering into the emergency department. He is on aspirin therapy. We will discontinue Plavix therapy, administer 180 mg p.o. Brilinta now and likely dose 90 mg p.o. b.i.d. thereafter. He is agreeable to statin trial, thus we will start Lipitor 40 mg p.o. daily. Recommend LDL less than 70. He does have probable coronary equivalent given bilateral soft carotid bruits noted on physical examination today. We will continue Lopressor therapy and reevaluate postcardiac catheterization. 2. History of hyperlipidemia. LDL is 86. Goal is less than 70. Given above # 1, we will start statin therapy. We will need repeat liver function tests in 6 to 8 weeks' time. 3. History of hypertension. Now on Lopressor therapy, he is currently normotensive. 4. Positive bilateral soft carotic bruits on physical examination. Recommend carotid duplex. Goal LDL is less than 70. Now on aspirin and statin therapy. He is asymptomatic. 5. History of prior diverticular bleed in 2016. We will initiate PPI therapy given dual antiplatelet therapy at this time. 6. Disposition, pending course. 7. Echocardiogram is pending. We will proceed with left heart catheterization and continue medical management at this time. We will follow patient closely after cardiac catheterization and make further recommendations. Dr. Edgar Reyes has personally seen and examined the patient and agrees with the above treatment plan. Thank you for this kind consultation. Any future questions or concerns, please do not hesitate to contact our practice. CATIE ORR NP [id number]/[facility] #: [id number] FADIA
[2019-07-10 13:37] VITALS: BP 178/110
--- NOTE | 2019-07-10 14:21 | TRS ---
CC: Deo Godinez MD TRANSFER SUMMARY: DATE OF ADMISSION: 07/09/19 DATE OF TRANSFER: 07/10/19 PRIMARY CARE PHYSICIAN: Deo Godinez MD PRIMARY DIAGNOSIS: Severe triple vessel coronary artery disease. CONSULTS: Dr. Edgar Reyes of Cardiology. PROCEDURES: Cardiac catheterization on 07/10/19. TRANSFER MEDICATIONS: 1. Aspirin 81 mg daily. 2. Atorvastatin 40 mg nightly. 3. Metoprolol tartrate 12.5 mg every 12 hours. 4. Heparin drip for therapeutic anticoagulation. HISTORY OF PRESENT ILLNESS: Mr. Finley is a 69-year-old man with history of HTN off meds, who is presenting with worsening intermittent substernal chest pain. He reports a substernal pressure-like chest pain on significant exertion "rarely" over the last 2 years; however, over the last 2 days, it has acutely worsened. Two days prior to presentation, on , the patient was dancing and his chest pain came on suddenly, it lasted for several minutes, and resolved with rest. The patient went home, as he was afraid continued exertion would bring back the chest pain. The next day, which was 1 day prior to presentation, the patient was sitting at a sports bar watching a game when the chest pain recurred suddenly and lasted for several minutes. The pain was substernal and nonradiating, although it felt more stabbing in quality than pressure-like, and then self resolved. On the morning of presentation, the patient walked approximately one tenth of a mile when the chest pain recurred, was severe, and associated with hand tingling, so the patient decided to present to the emergency room as normally he has unlimited exercise tolerance. The patient denies associated diaphoresis, fevers, chills, shortness of breath, abdominal pain, nausea, vomiting, constipation, or dysuria. HOSPITAL COURSE: In the emergency room, the patient was hypertensive to 170/84. His labs were significant for a troponin of 0.04. His EKG was notable for inferolateral ST segment depressions, so he was initiated on anticoagulation and given aspirin and Plavix load. Cardiology was consulted and recommended a nuclear stress test for the next morning. However, overnight, the patient's troponin increased , peaking at 0.15. Interventional Cardiology was consulted and recommended a cardiac catheterization as well as ticagrelor 180 mg dose. During cardiac catheterization, he was noted to have significant triple vessel disease, so electronic sensing equipment assembler initiated transfer for revascularization. [facility], the closest hospital, was consulted first, although they reported after reviewing the films that they would be unable to do a complete revascularization. [facility] was then consulted and specialists there felt that they could revascularize more territory than at [facility], so a transfer was initiated to transfer to the [facility]. At the time of discharge, the patient was hemodynamically stable and free of chest pain and his troponins had decreased to 0.11. PERTINENT DIAGNOSTIC STUDIES: CBC and BMP within normal limits. PTT on heparin drip 132. Troponin peaked at 0.15 with CK-MB 2.8. Chest x-ray without acute cardiopulmonary process. Transthoracic echocardiogram: Left ventricle with normal cavity size and wall thickness mildly increased. Systolic function normal with EF 55% to 60%. Wall motion normal without regional wall motion abnormalities. Doppler parameters are consistent with abnormal left ventricular relaxation (grade 1 diastolic dysfunction), normal cardiac chamber sizes, functionally benign heart valves. EKG with normal sinus rhythm, rate 76, submillimeter ST depressions in II, III, aVF. ASSESSMENT AND PLAN: Mr. Finley is a 69-year-old man with untreated HTN who is presenting with progressive intermittent substernal chest pain, who was found with elevated troponin and slight ST depressions. He underwent a cardiac catheterization showing significant triple vessel disease and is now being transferred for revascularization with [facility]. His medications are to be continued as above. Of note, the patient was noted to have bilateral carotid bruits on physical exam. Given the urgency of his transfer, ultrasound was unable to be performed at [facility]; however, this should be done at [facility] for further risk stratification. Of note, the patient primarily lives in [place] and only returned to [place] after accepting an offer for his house. He plans to receive his followup care in [place]. DISPOSITION: [facility]. CONDITION: Guarded. TIME SPENT: Approximately 60 minutes was spent on transfer of this patient, more than half of which was spent with care coordination at bedside for interview and exam. [id number]/[facility] #: [id number] FADIA
--- NOTE | 2019-07-10 15:44 | CATH ---
CC: Dr. Deo Godinez; Dr. Jay Oglesby at [facility] in [facility] CARDIAC CATHETERIZATION REPORT: DATE OF PROCEDURE: 07/10/19 INDICATIONS FOR PROCEDURE: The patient presents with acute coronary syndrome with abnormal troponins, NSTEMI, assess for the presence of significant underlying coronary artery disease. PROCEDURES: Left heart catheterization, left ventriculography, coronary arteriography. CONSENT: The patient was interviewed and examined on the floor in the hospital where the risks, benefits were explained. He understood them and wished to proceed. APPROACH: The right radial artery was assessed on the floor of the hospital and found to be acceptable for an approach, and as such, this was the approach utilized. PRE-CARDIAC CATHETERIZATION LABORATORY RESULTS: Hemoglobin and hematocrit of 15.2 and 44 with a platelet count 235,000. BUN and creatinine of 15 and 0.9. Sodium 136, potassium 4.0, chloride 101, bicarb 28. Troponin 0.15 peak. EQUIPMENT UTILIZED: 1. Right radial artery sheath was a 6-[place]ankan Glidesheath Slender. 2, Diagnostic coronary catheter was a 5-[place]ankan TIG-4 curve catheter. 3. Diagnostic coronary guidewire was a 260 length Duarte guidewire. 4. The left heart catheterization catheter was a 5-[place]ankan TIG short radial catheter. 5. The closure device utilized was regular length Vasc Band. MEDICATIONS GIVEN DURING THE CASE: The radial artery cocktail included 300 mcg of nitroglycerin and 3 mg verapamil. The patient was on a heparin drip. ACT was found to be low and extra 2000 units of heparin was given. 1% lidocaine was given locally. Of note, the patient had already received 180 mg loading dose of Brilinta this morning and had been loaded with Plavix the day before. DESCRIPTION OF PROCEDURE: The patient was brought to the cardiovascular laboratory where formal time-out was performed. He was prepped and draped in sterile fashion, and under ultrasound guidance, the right radial artery was cannulated. A sheath was placed. Coronary arteriography was performed. Following this, left heart catheterization was performed, followed by left ventriculography utilizing a total of 28 cc of Omnipaque dye at a rate of 14 cc per second. The catheter was then pulled back across the aortic valve to recheck gradient. At the end of the case, catheter and sheath were removed. Hemostasis was obtained with a Vasc Band. The reverse Barbeau was a B. The total contrast used was a 130 cc of Omnipaque dye. The radiation exposure included 7.3 minutes of fluoro time. The air kerma radiation was 1211 mGy. The DAP radiation was 6773 microgray per meter squared. RESULTS: HEMODYNAMIC DATA: Left heart catheterization: Left ventricular pressure recorded at 130 over left ventricular end-diastolic pressure of 7. Central aortic pressure was recorded at approximately 130/66 with a mean of 92. LEFT VENTRICULOGRAPHY: Performed in the JAMES projection revealed a relatively normal left ventricular contractility with overall ejection fraction approximately 55%. There was slight proximal to mid inferior wall hypokinesis noted. CORONARY ARTERIOGRAPHY: A. Right coronary artery - a dominant vessel supplying several acute marginal branches, the PDA, and 2 posterior left ventricular branches. There was moderate disease in the proximal and mid segment followed by an ulcerated, dissected area just as it turned out to the inferior surface of the heart with a degree of stenosis approximately 85%. Past this point before reaching the PDA was another ulcerated area with a stenosis as much as 80%. The PDA area itself showed a significant 75% to 80% lesion prior to the PDA. The PDA itself was a diffusely diseased vessel with a proximal narrowing of 50% to 55%, a mid lesion of 70%. The continuation of the right coronary artery past the PDA supplied 2 somewhat small posterior left ventricular branches. B. Left coronary artery: 1. Left main - the left main appeared to have tapering from its ostial area into its mid to distal area with 45% narrowing noted compared to the ostium. 2. The LAD itself had diffuse disease and heavy calcification seen throughout the course of it with a proximal narrowing that appeared to be as much as 65% to 70%. The rest of the LAD had moderate diffuse disease throughout the body of the LAD with a significant lesion in the distal most segment as it bifurcated in an area of the vessel that was too small for intervention. Of note, the second diagonal branch was one of the larger diagonal branches and had a significant proximal 80% narrowing seen. I believe that vessel is bypassable, as is the LAD in most of its area though it is diffusely diseased. 3. Circumflex artery - a nondominant vessel supplying a small caliber first obtuse marginal branch. The mid obtuse marginal branch was diffusely diseased with high grade 85% to 90% stenosis at its origin followed by a mid 85 % hazy lesion, followed by another diffusely diseased area before the vessel bifurcated with a branch extending toward the apical posterolateral region that I believe is also bypassable. Of note, there is a superior branch of this obtuse marginal branch that is thin in nature and subtotally occluded and cannot be addressed by intervention either. The continuation of the circumflex supplied 1 low-lying smaller caliber obtuse marginal branch. The potential for bypassing that vessel is difficult to say, it is borderline at best for bypass. Of note, there is heavy calcification seen throughout the proximal to mid areas of both the circumflex, right coronary artery, and the left anterior descending artery. OVERALL ASSESSMENT: Significant triple vessel disease as described above with normal left ventricular systolic function. Of note, I obtained multiple opinions regarding this case. The patient initially wanted to go to [facility]. I spoke to the Cardiothoracic Surgery there, who felt he was not the best of candidates for bypass and then perhaps the LAD and obtuse marginal branch could be bypassed, but they were not clear that they could bypass any other arteries. They asked the interventionalist and the interventionalist refused the case, felt it was too diffusely diseased. We then spoke with [facility] and they felt they could probably get more of the vessels, but perhaps not do complete revascularization either, but appeared to be able to at least perform more bypasses than [facility]. The interventionalist looked at the case and felt he was not the best candidate for intervention and would only take on the patient if the patient adamantly refused any attempt at open heart surgery or was deemed to be too high risk for this. I discussed all of this with the patient and he wishes to proceed to [facility] after hearing that [facility] felt that they could not provide as well revascularization. OF NOTE, ONE IMPORTANT ISSUE: The patient has bilateral carotid bruits present and has not been evaluated. Clearly, he needs to be evaluated prior to surgery in order to make sure there are no critical blockages that would increase the risk of cardiothoracic surgery or at least allow the surgeons to explain to him what his risk stratification is. ALSO: The patient has received both loading dose of Brilinta 180 mg and had been loaded with 300 mg of clopidogrel yesterday. As such, surgery will appropriately have to be delayed until these agents can wear off. This will hopefully allow enough time to evaluate his carotid artery status in order to make sure they understand all of his risks for undergoing open heart surgery. [id number]/[facility] #: [id number] FADIA
[2019-07-10] MEDS ORDERED: Atorvastatin* 40 MG TAB PO SCH (21:00)
== END 2019-07-10 14:15 | disposition short-term general hospital (02) ==
LOC: ED 14:18 → MEDTELE 18:06
PROVIDERS: ADMIT Internal Medicine; ATTEND Internal Medicine
DX: R07.9 Chest pain, unspecified (principal); Z87.891 Personal history of nicotine dependence; I20.0 Unstable angina; I10 Essential (primary) hypertension; R06.02 Shortness of breath; E78.00 Pure hypercholesterolemia, unspecified; Z79.82 Long term (current) use of aspirin; Z79.899 Other long term (current) drug therapy
CPT/HCPCS: 36415; 71046; 76937; 80053; 80061; 82550; 82553; 82565; 83036; 84484; 84520; 85025; 85347; 85610; 85730; 93005; 93306; 93458; 96372; 99284; A9270-GY; G0378; J1644; J1650; J2250; J3010

== ENCOUNTER → 2019-08-07 10:27 | Day surgery (SDC) | payer MEDICARE, OTHER ==
--- NOTE | 2019-08-07 12:56 | BRIEFOPN ---
Brief Operative/Procedure Note - Operation Details Pre-Op Diagnosis: Large right pleural effusion Post-Op Diagnosis: Serosanguinous fluid 1800 on right side Procedures: U/S guided thoracentesis on right side Surgeon(s)/Proceduralists: gurmeet Yarbrough Anesthesia: Local with 1% lidocaine 5cc Estimated Blood Loss: None Findings: Seroanguinous bloody effusion Specimen(s)/Culture(s) Description: Cytology, hematology, biochem, micro Complications: None
[2019-08-07 13:32] LABS: Body Fluid Source Pleural Fluid
[2019-08-07 13:52] LABS: Hematocrit 33 % (42-52); Hemoglobin 11.3 g/dL (14.0-18.0)
[2019-08-07 15:22] LABS: Body Fluid Mono 10 %
--- NOTE | 2019-08-07 19:20 | PRO ---
THORACENTESIS REPORT: DATE OF PROCEDURE: 08/07/19 PREPROCEDURAL DIAGNOSIS: Large right effusion. POSTPROCEDURAL DIAGNOSIS: Large right effusion with serosanguineous fluid. ANESTHESIA: Local anesthesia with 1% lidocaine 5 cc. DESCRIPTION OF PROCEDURE: Informed consent was obtained from the patient prior to the procedure after all the risks and benefits were thoroughly explained. The patient was sitting up, leaning forward during the procedure. Strict aseptic precautions and barrier techniques were utilized. CareFusion 8-Malian thoracentesis catheter was utilized at bedside. Portable ultrasound was utilized at bedside to localize large amounts of right effusion and the site was marked. Area was disinfected with chlorhexidine. Local anesthesia was achieved with 1% lidocaine transdermally and subcutaneously down into the pleural space taking precautions. A #11 scalpel blade was used to make stab incision. CareFusion 8- Malian thoracentesis catheter was subsequently inserted under manual suction taking precautions. Catheter was left in place and needle was removed. 1800 cc of serosanguineous fluid was removed under manual suction. The patient tolerated the procedure well. Catheter was then removed and sterile Band-Aid was applied. Fluid was sent into the lab for cytological, biochemical, and hematological examination. I have notified Dr. Guadalupe about the finding of serosanguineous fluid. Will check hematocrit. The patient is okay to be discharged home as per Dr. Guadalupe. He will contact the patient's surgeon regarding any further interventions. [id number]/[facility] #: [id number] MTDD
[2019-08-09 14:19] LABS: Lactate Dehydrogenase, BF 807 U/L
[2019-08-09 16:11] LABS: Fluid Type, Glucose PLEURAL
[2019-08-10 05:22] LABS: Fluid Type, Protein, Total PLEURAL
== END | disposition home or self-care (01) ==
LOC: OR 10:27
PROVIDERS: ATTEND Internal Medicine
DX: J90 Pleural effusion, not elsewhere classified (principal); R07.9 Chest pain, unspecified; Z87.891 Personal history of nicotine dependence; I10 Essential (primary) hypertension; K21.9 Gastro-esophageal reflux disease without esophagitis; I25.10 Atherosclerotic heart disease of native coronary artery without angina pectoris; I25.2 Old myocardial infarction; Z95.1 Presence of aortocoronary bypass graft
CPT/HCPCS: 32554; 36415; 76604; 82945; 83615; 83986; 84157; 85014; 85018; 87070; 87205; 88112; 88305; 89051

== ENCOUNTER → 2019-08-19 11:10 | Day surgery (SDC) | payer MEDICARE, OTHER ==
--- NOTE | 2019-08-19 15:01 | BRIEFOPN ---
Brief Operative/Procedure Note - Operation Details Pre-Op Diagnosis: Large rt effusion Post-Op Diagnosis: large rt effusion Procedures: U/S guided thoracentesis Surgeon(s)/Proceduralists: gurmeet Yarbrough Anesthesia: Local with 1% lidocaine Estimated Blood Loss: None Findings: Serosanguinous rt effusion - 1600 cc Specimen(s)/Culture(s) Description: None Complications: None
--- NOTE | 2019-08-20 01:12 | PRO ---
THORACENTESIS REPORT: DATE OF PROCEDURE: 08/19/19 - [facility] PROCEDURE PERFORMED: Ultrasound-guided thoracentesis on the right side. PREPROCEDURAL DIAGNOSIS: Large right effusion, status post recent coronary artery bypass graft. POSTPROCEDURAL DIAGNOSIS: Large right effusion with serosanguineous effusion. ANESTHESIA: Local anesthesia with 1% lidocaine 5 cc. PROCEDURE: Informed consent was obtained from the patient prior to the procedure after all the risks and benefits were thoroughly explained. The patient was sitting up and leaning forward during the procedure. Appropriate time-out was performed and agreed on by attending staff prior to the procedure. Portable ultrasound was utilized at bedside to localize large amounts of right effusion. Strict aseptic precautions, barrier techniques were utilized. Area was disinfected with chlorhexidine. Lidocaine was instilled intradermally subcutaneously down to pleural space taking precautions after ultrasound localization. #11 scalpel blade was used to make a stab incision to facilitate the thoracentesis catheter. Care-Fusion 8-Slovenian thoracentesis catheter was subsequently inserted under manual suction taking precautions. Catheter was left in place and needle was removed. 1600 mL of serosanguineous fluid was removed under manual suction. Catheter was then removed and sterile Band-Aid was applied. The patient tolerated the procedure well. Given the size of effusion, post-procedure chest x-ray was not indicated and the patient was also asymptomatic. The patient reported improvement in breathing. [id number]/[facility] #: [id number] [facility]
== END | disposition home or self-care (01) ==
LOC: OR 11:10
PROVIDERS: ATTEND Internal Medicine
DX: J90 Pleural effusion, not elsewhere classified (principal); Z95.1 Presence of aortocoronary bypass graft; I10 Essential (primary) hypertension; I25.2 Old myocardial infarction; I25.10 Atherosclerotic heart disease of native coronary artery without angina pectoris; Z87.891 Personal history of nicotine dependence
CPT/HCPCS: 32554; 76604

== ENCOUNTER → 2019-09-11 10:02 | Day surgery (SDC) | payer MEDICARE, OTHER ==
--- NOTE | 2019-09-11 13:08 | BRIEFOPN ---
Brief Operative/Procedure Note - Operation Details Pre-Op Diagnosis: Large rt effusion Post-Op Diagnosis: Large rt effusion Procedures: Thoracentesis with U/S guidance Surgeon(s)/Proceduralists: Dr Loli Murray Anesthesia: Local with 5cc 1% lidocaine Estimated Blood Loss: None Findings: Large rt effusion Specimen(s)/Culture(s) Description: None Complications: None
--- NOTE | 2019-09-12 00:41 | PRO ---
THORACENTESIS REPORT: DATE OF PROCEDURE: 09/11/19 PROCEDURE PERFORMED: Ultrasound-guided thoracentesis on the right side. PREPROCEDURE DIAGNOSIS: Large right pleural effusion. ANESTHESIA: Local anesthesia with 1% lidocaine. DESCRIPTION OF PROCEDURE: Informed consent was obtained from the patient prior to the procedure after all the risks and benefits including risk of pneumothorax were thoroughly explained today. Appropriate time out was performed and agreed on by attending staff prior to the procedure. The patient was sitting up and leaning forward during the procedure. Strict aseptic precautions and barrier techniques were utilized. Area was disinfected with chlorhexidine. 1% lidocaine was instilled intradermally, subcutaneously down into the pleural space taking precautions. A #11 scalpel blade was used to make stab incision to allow thoracentesis catheter. A Care[employer] 8-[place]aj[place] thoracentesis catheter was subsequently inserted under manual suction taking precautions. Catheter was left in place and needle was removed. 1600 mL of dark brown fluid was removed. Catheter was then removed and sterile Band-Aid was applied. The patient tolerated the procedure well. Given the size of effusion and since ultrasound guidance was used, postprocedural chest x-ray was not required. The patient was comfortable after the procedure. Postprocedure vital signs were stable. The patient had mild coughing. Denied any other discomfort. [id number]/[facility] #: [id number] [facility]
== END | disposition home or self-care (01) ==
LOC: OR 10:02
PROVIDERS: ATTEND Internal Medicine
DX: J90 Pleural effusion, not elsewhere classified (principal); R06.02 Shortness of breath; Z95.1 Presence of aortocoronary bypass graft; Z87.891 Personal history of nicotine dependence; I10 Essential (primary) hypertension; K21.9 Gastro-esophageal reflux disease without esophagitis; A69.20 Lyme disease, unspecified; I25.10 Atherosclerotic heart disease of native coronary artery without angina pectoris
CPT/HCPCS: 32554; 76604